=== PATIENT | female | born 1990 | race Caucasian/White ===

== ENCOUNTER 2016-11-02 12:36 | Inpatient (IN) ==
[2016-11-02] MEDS ORDERED: 0.9 % Sodium Chloride 1,000 ML IVC ONE (14:02)
[2016-11-02] MEDS ORDERED: Metoclopramide 10 MG/2 ML VIAL IVP ONE (14:02)
[2016-11-02 14:59] LABS: Bilirubin,Urine Negative (Negative); Blood,Urine Negative (Negative); Clarity,Urine Clear (Clear); Color,Urine Yellow (Yellow); Glucose,Urine (UA) Normal (Normal); Ketones,Urine Negative (Negative); Leukocyte Esterase,Urine Trace (Negative); Nitrite,Urine Negative (Negative); Protein,Urine Negative (Neg-Trace); Specific Gravity,Urine 1.021 (1.010-1.025); Urobilinogen,Urine Normal (Normal)
[2016-11-02 15:01] LABS: Bacteria,Urine None Seen per hpf (None-Few); Hyaline Casts,Urine None Seen per lpf (None-Few); RBC,Urine 0-3 per hpf (0-3); Squamous Epithelial Cell,Urine Many per lpf (None-Few)
[2016-11-02 15:02] LABS: Basophils % 0.4 %; Eosinophils # 0.1 K/mcL (0.0-0.6); Eosinophils % 1.3 %; Hematocrit 39.9 % (35.3-44.9); Hemoglobin 12.6 g/dL (11.5-15.4); Immature Granulocytes % 0.2 % (0-4); Lymphocytes # 1.3 K/mcL (0.6-4.6); Lymphocytes % 22.7 %; Mean Corpuscular HGB Conc 31.6 g/dL (31.6-35.5); Mean Corpuscular Hemoglobin 26.6 pg (28.0-33.3); Mean Corpuscular Volume 84.2 fL (83.0-100.0); Mean Platelet Volume 10.4 fL (9.4-12.4); Monocytes # 0.3 K/mcL (0.0-1.3); Monocytes % 4.7 %; Platelet Count 191 K/mcL (140-400); Red Blood Count 4.74 M/mcL (3.82-4.97); Red Cell Distribution Width 13.1 % (11.5-14.5); Segmented Neutrophils % 70.7 %
--- NOTE | 2016-11-02 15:09 | Emergency Department Note ---
Disposition Clinical Impression: Migraine Qualifiers: Migraine type: other Status migrainosus presence: without status migrainosus Intractability: not intractable Qualified Code(s): G43.809 - Other migraine, not intractable, without status migrainosus Disposition: Home, Self-Care Condition: Good Referrals: Donna Deng CNP [Primary Care Provider] - Forms: ED Satisfaction Letter General Adult HPI - General Chief complaint: ED Headache Stated complaint: Migraine x1day,spine &eye pain Time Seen by Provider: 11/02/16 14:01 Source: patient Limitations: no limitations Nursing Notes Reviewed: Yes Vital Signs Reviewed: Yes - History of Present Illness HPI Narrative: 25-year-old female who presents with concern for headache. She does not a history of migraine headaches however admits to the worst headache of her life which started 4 days ago. The onset was fairly rapid. She also had pain behind her right eye and is now transiting neck pain. She denies rash or recent head trauma. She is currently breast-feeding however is not recently . Her delivery was 11 months ago. She has no chest pain, shortness of breath, weakness Pain Scale: 2 - Related Data Allergies Allergy/AdvReac Type Severity Reaction Status Date / Time No Known Allergies Allergy Verified 11/02/16 13:05 All systems ED: reviewed and negative except as stated. Past Medical History - Past Medical History Medical history: Reports: migraine, other Psychiatric history: Reports: no psych history - Social History Smoking Status: Former smoker Smokeless Tobacco Status: No Alcohol use: Reports: none Drug use: Reports: none Physical Exam - General Limitations: no limitations General appearance: alert, in no apparent distress - Head Head exam: atraumatic - Eye Eye exam: Present: normal appearance - ENT ENT exam: normal exam, normal oropharynx - Neck Neck exam: Present: normal inspection, full ROM - Chest Chest inspection: Present: normal inspection - Respiratory Respiratory exam: Present: normal lung sounds bilaterally - Cardiovascular Cardiovascular exam: Present: regular rate, normal rhythm - Abdominal Exam Abdominal exam: Present: soft, Non-Tender - Extremities Exam Extremities exam: Present: normal inspection, full ROM - Expanded Lower Extremity Exam Hip/Pelvis exam: Present: normal inspection, full ROM Upper leg exam: Present: normal inspection, full ROM Neurovascular/Tendon exam: Present: normal capillary refill Gait: observed and normal - Back Exam Back exam: Present: normal inspection, full ROM - Neurological Exam Neurological exam: Present: alert, oriented X3, CN II-XII intact - Psychiatric Psychiatric exam: Present: normal affect, normal mood - Skin Skin exam: Present: warm, dry Course Vital Signs Temperature 98.2 F 11/02/16 13:05 Pulse Rate 87 11/02/16 13:05 Respiratory Rate 16 11/02/16 13:05 Blood Pressure 110/68 11/02/16 13:05 O2 Sat by Pulse Oximetry 96 11/02/16 13:05 Temperature 98.2 F 11/02/16 13:05 Pulse Rate 91 11/02/16 15:05 Respiratory Rate 16 11/02/16 15:05 Blood Pressure 101/68 11/02/16 15:05 O2 Sat by Pulse Oximetry 100 11/02/16 15:05 Oxygen Delivery Oxygen Delivery Room Air Medical Decision Making - Medical Records Medical records reviewed: Yes I reviewed the patient's medical records. - Lab Data Lab results reviewed: Yes I reviewed the patient's lab results. Result diagrams: 11/02/16 14:44 Lab Results 11/02/16 11/02/16 11/02/16 Range/Units 14:44 14:44 14:44 WBC 5.6 (4.3-11.1) K/mcL RBC 4.74 (3.82-4.97) M/mcL Hgb 12.6 (11.5-15.4) g/dL Hct 39.9 (35.3-44.9) % MCV 84.2 (83.0-100.0) fL MCH 26.6 L (28.0-33.3) pg MCHC 31.6 (31.6-35.5) g/dL RDW 13.1 (11.5-14.5) % Plt Count 191 (140-400) K/mcL MPV 10.4 (9.4-12.4) fL Immature Gran % 0.2 (0-4) % Seg Neutrophils % 70.7 % Lymphocytes % 22.7 % Monocytes % 4.7 % Eosinophils % 1.3 % Basophils % 0.4 % Neutrophils # 4.0 (1.6-8.9) K/mcL Lymphocytes # 1.3 (0.6-4.6) K/mcL Monocytes # 0.3 (0.0-1.3) K/mcL Eosinophils # 0.1 (0.0-0.6) K/mcL Basophils # 0.0 (0.0-0.2) K/mcL Serum , Qual Negative (Negative) Urine Color Yellow (Yellow) Urine Clarity Clear (Clear) Urine pH 6.0 (5.0-8.0) pH Units Ur Specific [place] 1.021 (1.010-1.025) Urine Protein Negative (Neg-Trace) mg/dL Urine Glucose (UA) Normal (Normal) mg/dL Urine Ketones Negative (Negative) mg/dL Urine Blood Negative (Negative) Urine Nitrite Negative (Negative) Urine Bilirubin Negative (Negative) Urine Urobilinogen Normal (Normal) mg/dL Ur Leukocyte Esterase Trace H (Negative) Urine Microscopic RBC 0-3 (0-3) per hpf Urine Microscopic WBC 5-15 H (0-3) per hpf Ur Squamous Epith Cells Many H (None-Few) per lpf Urine Bacteria None Seen (None-Few) per hpf Hyaline Casts None Seen (None-Few) per lpf Ur Culture Indicated? YES A (NO)
[2016-11-02 15:11] LABS: Alanine Aminotransferase 18 Units/L (0-55); Albumin 4.1 g/dL (3.5-5.0); Albumin/Globulin Ratio 1.2 (1.1-2.2); Alkaline Phosphatase 59 Units/L (38-126); Aspartate Amino Transferase 16 Units/L (5-34); BUN/Creatinine Ratio 17 (6-26); Bilirubin,Total 0.4 mg/dL (0.2-1.2); Blood Urea Nitrogen 13 mg/dL (7-20); Calcium 9.5 mg/dL (8.6-10.8); Carbon Dioxide 27 mEq/L (19-29); Chloride 107 mEq/L (98-109); Globulin 3.3 g/dL (2.4-3.5); Glucose 86 mg/dL (70-99); Osmolality,Calculated 291 (280-300); Sodium 141 mEq/L (136-145); Total Protein 7.4 g/dL (6.0-8.3); eGFR For African Americans > 60 (> 60); eGFR For Non-African Americans > 60 (> 60)
[2016-11-02] MEDS ORDERED: Ketorolac 30 MG/ML VIAL IVP ONE ×2 (15:52→23:37)
[2016-11-02] MEDS ORDERED: Acetaminophen/Butalbital/CaffeineTABLET PO ONE (15:52)
[2016-11-02] MEDS ORDERED: *HR* FentaNYL (PF) 100 MCG/2 ML VIAL IVP ONE (16:24)
[2016-11-02 17:53] LABS: Red Blood Cell,CSF < 0.002 M/mcL
[2016-11-02 17:57] LABS: Appearance,CSF Clear (Clear)
[2016-11-02 18:07] LABS: Glucose,CSF 57 mg/dL (40-70); Total Protein,CSF 50 mg/dL (15-45)
[2016-11-02] MEDS ORDERED: Acyclovir 500 MG in D5% in Water 100 ML IVPB ONE (18:16)
[2016-11-02] MEDS ORDERED: Vancomycin 1,000 MG in D5% in Water 250 ML IVPB ONE ×2 (18:16→23:00)
[2016-11-02] MEDS ORDERED: Naloxone 0.4 MG/ML INJ IVP PRN (20:08)
[2016-11-02] MEDS ORDERED: Acetaminophen 325 MG TABLET PO PRN (20:08)
[2016-11-02] MEDS ORDERED: *HR* HYDROcodone/Acet 5/325 mg TABLET PO PRN (20:08)
[2016-11-02] MEDS ORDERED: Ondansetron 4 MG/2 ML VIAL IVP PRN (20:08)
[2016-11-02] MEDS ORDERED: *HR* Morphine 2 MG/ML SYRINGE IVP PRN (20:08)
--- NOTE | 2016-11-02 20:14 | Internal Med History&Physical ---
<Hollis العلي - Last Filed: 11/02/16 21:19> Date of Encounter: 11/02/16 Time of Encounter: 19:30 Assessment and Plan (1) Meningitis Current visit: Yes Status: Acute - Deep frontal intermittent pulsating pressure like headache aggravated by neck flexion. - CSF analysis revealed 50 total nucleated cells with 74% lymphocyte, glucose 57 , total protein 50 suggestive of viral meningitis. - CSF culture with gram stain, HSV, Enterovirus, West Nile virus pending. - One dose of IV ceftriaxone and vancomycin had been ordered in ED. Will hold further antibiotic for now unless - Continue IV acyclovir for now. - Consider ID consult and appreciate further evaluation and recommendation. - Admit to hospital for close monitoring and IV medication treatment. Total time spent on admission: 40 minutes. (2) Pain around right eye Current visit: Yes Status: Acute - 4-day history of pain behind right eye aggravated by movement but vision change at this time. - Will obtain MRI brain and orbital with/without contrast to rule out orbital cellulitis. - Prn pain medication for pain control. (3) DVT prophylaxis Current visit: Yes Status: Acute - SQ heparin. Internal Medicine - H&P: HPI Chief complaint: Right eye pain and headache Admitted From: Emergency Dept Plans for Post Hospital Care: Home History of present illness: Ms. Humphrey is a 25 year old female with PMH of chronic headache/migraine. Patient presented with complaint of right eye pain and headache. Patient reports having pain behind the right eye for 4 days and it's aggravated by eye movement but no vision change. Patient's headache started at 4 pm yesterday and it's intermittent pulsating pressure-like deep frontal headache aggravated by neck flexion and partially alleviated by ice pack. Patient states the headache is different from the headache she had before. Patient also has some chills but denies fever, photophobia, hearing change, numbness/tingling, focal weakness, cough, dyspnea, chest pain, nausea, vomiting, diarrhea, dysuria, incontinence, skin rash/itchiness. Patient reports her daughter got sick on 10/18/16 but patient personally did not have any symptoms. Patient denies recent travel or camping. Patient [place] live [place] a farm and has exposure to animals including horse , turkey, dog and cat but denies recent bites or scratches. Patient also has some insect bites recently but she thinks it's more likely mosquito bites not tick bites. Patient denies recent trauma, injury or fall. Patient denies cold sore or genitourinary lesion. CT head in ED found no acute intracranial abnormality. Lumbar puncture was performed in ED and CSF analysis revealed 50 total nucleated cells with 74% lymphocyte, glucose 57, total protein 50 suggestive of viral meningitis. CSF culture with gram stain, HSV, enterovirus and West Nile virus pending. IV vancomycin, ceftriaxone and acyclovir were ordered. Past Med Surg Social Fam HX - Past Medical History Medical history: migraine, other Psychiatric history: no psych history - Past Surgical History Surgical History: other (Right breast fibroadenoma removal 2005, exploratory surgery for endometriosis. ) - Social History Smoking Status: Former smoker Smokeless Tobacco Status: No Alcohol use: none Drug use: none - Family History Mother History Unknown: Yes Adopted: [place]: Cecelia Humphrey Family Member Ethnicity: Non- Living Status: Still Living Hx Family Cardiac Disorders: Yes (PVC) Hx Family Respiratory Disorders: Yes (ASTHMA) Hx Family Cancer: No Hx Family GI Disorders: No Hx Family Genitourinary Disorders: No Hx Family Endocrine Disorder: No Hx Family Musculoskeletal Disorders: No Hx Family Neuromuscular Disorders: No Hx Family Neurologic Disorders: No Hx Family HEENT Disorders: No Hx Family Autoimmune Disorders: No Hx Family Reproductive Disorders: No Hx Family Psychosocial Disorders: No Hx Family Medical Disorders: No Internal Medicine - H&P: Meds Multivitamin [Multi-Day Vitamins] 1 each PO DAILY 11/02/16 [History] [place]-3 Fatty Acids/Fish Oil [Hm Fish Oil 1200 mg Softgel] 3 each PO DAILY 11/02 [History] 3 Allergy/AdvReac Type Severity Reaction Status Date / Time No Known Allergies Allergy Verified 11/02/16 13:05 All Systems PM: A 10-system review of systems was performed and is negative for pertinent findings except as documented above in the HPI. - Constitutional Constitutional: chills, no fever(s) - EENT Eyes: no change in vision Ears: no decreased hearing Nose, mouth and throat: no dysphagia, no odynophagia - Cardiovascular Cardiovascular ROS IM: no chest pain, no edema, no syncope - Respiratory Respiratory: no cough, no dyspnea, no hemoptysis - Gastrointestinal Gastrointestinal: abdominal pain, no diarrhea, no hematochezia, no melena, no nausea, no vomiting - Genitourinary Genitourinary: no difficulty urinating, no dysuria, no hematuria, no urinary incontinence - Musculoskeletal Musculoskeletal ROS IM: no arthralgias, no myalgias - Integumentary Integumentary IM: no pruritus, no rash - Neurological Neurological ROS: no frequent falls, no numbness, no tingling - Hematologic/Lymphatic Hematologic/Lymphatic: no easy bleeding, no easy bruising - Constitutional Vitals: Temp Pulse Resp BP Pulse Ox 98.2 F 101 0 0/0 97 11/02/16 13:05 11/02/16 18:33 11/02/16 19:16 11/02/16 19:16 11/02/16 18:33 General appearance: Present: cooperative, A&O X 3, no acute distress, answers questions appropriately - Head Head exam: Present: atraumatic, normocephalic - Eye Eye exam: Present: EOMI, PERRL, conjuntiva pink, sclera anicteric - ENT ENT exam: Present: mucous membranes moist, normal exam - Neck Neck exam general surgery: Present: supple, trachea midline. Absent: lymphadenopathy Additional comments: Pain on neck flexion but no nuchal rigidity - Respiratory Respiratory exam: Present: CTAB. Absent: accessory muscle use, rales, rhonchi, wheezes - Cardiovascular Cardiovascular exam: Present: RRR, +S1, +S2. Absent: diastolic murmur, gallop, rubs, systolic murmur - GI/Abdominal GI/Abdominal exam: Present: normal bowel sounds, soft, no peritoneal signs. Absent: distended, tenderness - Extremities Exam Extremities exam: Present: warm, radial pulses palpable and symmetrical. Absent : calf tenderness, cyanotic, pedal edema - Neurological Exam Neurological exam: Present: CN II-XII intact, oriented X3, no focal deficits. Absent: pronater drift, facial droop, speech deficit Additional comments: Negative Kernig's sign and Brudzinski sign. - Skin Skin exam: Present: dry, intact, warm Internal Med - H&P Results - Labs CBC & Chem 7: 11/02/16 14:44 11/02/16 14:44 <Adam Ramirez - Last Filed: 11/02/16 22:47> Date of Encounter: 11/02/16 Internal Medicine - H&P: HPI History of present illness: Ms. Hill is a 25 year old female All Systems PM: A 10-system review of systems was performed and is negative for pertinent findings except as documented above in the HPI. - Constitutional Vitals: Temp Pulse Resp BP Pulse Ox 98.2 F 101 0 0/0 97 11/02/16 13:05 11/02/16 18:33 11/02/16 19:16 11/02/16 19:16 11/02/16 18:33 Internal Med - H&P Results - Labs CBC & Chem 7: 11/02/16 14:44 11/02/16 14:44 - Impressions ITS Impressions Brain MRI 11/02/16 20:06 IMPRESSION: 1. Unremarkable MRI of the brain and orbits. No findings to account for the patient's headaches. 2. There is a right maxillary mucous retention cyst, unchanged. There is trace mucosal thickening in the anterior ethmoid air cells. D/ / 11/02/2016 21:47:05 Pierre Burch MD / isaias Interpreting Provider: Pierre Burch MD Orbit MRI 11/02/16 20:06 IMPRESSION: 1. Unremarkable MRI of the brain and orbits. No findings to account for the patient's headaches. 2. There is a right maxillary mucous retention cyst, unchanged. There is trace mucosal thickening in the anterior ethmoid air cells. D/ / 11/02/2016 21:47:05 Pierre Burch MD / isaias Interpreting Provider: Pierre Burch MD - Attending Attestation I examined this patient and my medical decision-making was reviewed with the Resident Physician, Dr. Hollis العلي. I agree with the documented findings, disposition and treatment plan as described except to the extent set forth below. I have independently obtained history and examined the patient and my findings are summarized below: Patient presented to the hospital evaluation of severe headache. On exam she is awake alert oriented in no acute distress. Heart is regular, lungs are clear. Neurologic exam is nonfocal Assessment and plan: Aseptic meningitis based on headache, neck stiffness and tenderness and CSF WBC predominantly lymphocytic. Plan: Continue empiric antibiotic and antiviral treatment. Follow-up CSF culture and Gram stain, we will obtain CSF Lyme disease antibody, viral PCR. We will obtain MRI of the brain.
[2016-11-02] MEDS: *HR* Heparin 5,000 UNIT/ML VIAL SQ SCH (22:12)
[2016-11-02] MEDS: Acyclovir 500 MG in D5% in Water 100 ML IVPB SCH (22:21)
[2016-11-03] MEDS ORDERED: Ketorolac 15 MG/ML VIAL IVP PRN (00:23)
[2016-11-03] MEDS: Acyclovir 500 MG in D5% in Water 100 ML IVPB SCH (05:11)
[2016-11-03] MEDS: *HR* Heparin 5,000 UNIT/ML VIAL SQ SCH ×2 (05:13→12:58)
[2016-11-03 06:09] LABS: Basophils % 0.4 %; Eosinophils # 0.1 K/mcL (0.0-0.6); Eosinophils % 1.2 %; Hematocrit 34.4 % (35.3-44.9); Hemoglobin 11.4 g/dL (11.5-15.4); Immature Granulocytes % 0.2 % (0-4); Lymphocytes # 1.3 K/mcL (0.6-4.6); Lymphocytes % 25.4 %; Mean Corpuscular HGB Conc 33.1 g/dL (31.6-35.5); Mean Corpuscular Hemoglobin 27.7 pg (28.0-33.3); Mean Corpuscular Volume 83.7 fL (83.0-100.0); Mean Platelet Volume 10.7 fL (9.4-12.4); Monocytes # 0.3 K/mcL (0.0-1.3); Neutrophils # 3.5 K/mcL (1.6-8.9); Platelet Count 171 K/mcL (140-400); Red Blood Count 4.11 M/mcL (3.82-4.97); Red Cell Distribution Width 13.2 % (11.5-14.5); Segmented Neutrophils % 66.8 %
[2016-11-03 06:15] LABS: BUN/Creatinine Ratio 16 (6-26); Blood Urea Nitrogen 11 mg/dL (7-20); Calcium 8.5 mg/dL (8.6-10.8); Carbon Dioxide 22 mEq/L (19-29); Chloride 112 mEq/L (98-109); Glucose 98 mg/dL (70-99); Osmolality,Calculated 291 (280-300); Potassium 3.9 mEq/L (3.5-4.5); Sodium 141 mEq/L (136-145); eGFR For African Americans > 60 (> 60); eGFR For Non-African Americans > 60 (> 60)
--- NOTE | 2016-11-03 12:16 | Infectious Disease Consult ---
Date of Encounter: 11/03/16 Time of Encounter: 12:06 Assessment and Plan (1) Meningitis Status: Acute Assessment and plan: Likely viral given the clinical picture. CT head negative. MRI brain negative. CSF analysis revealed TNC 50 with predominantly lymphocytes. HSV PCR, Enterovirus, WNV pending. Clinically improved overnight. Low index of suspicion for HSV meningitis. Discontinue acyclovir. Continue supportive care. Pain management per the primary team. No further recommendations from the ID team. Will sign off. Please re-consult if needed. (2) Pain around right eye Status: Acute Assessment and plan: MRI negative. Continue supportive care. Pain management per the primary team. Infectious Disease HPI - Data of Consult Patient: new to practice Consult date: 11/03/16 Requesting Physician: Rikki Reyna MD Primary Care Provider: Donna Deng CNP - Consult Narrative Reason for consult: Meningitis History of present illness: Ms. Humphrey is a 25 year old female with a past medical history of migraine headaches. The patient was admitted to the hospital November 02 for meningitis. We are consulted November 03 for further evaluation and treatment recommendations regarding meningitis. The patient is a 25-year-old female with past medical history as stated above. The patient reported a four-day history of right eye pain that progressed into a headache that she reported was the worst headache of her life. She reported some associated light sensitivity, but denies any photophobia, nausea, vomiting , diarrhea, or blurred vision. She states the headache was mainly in the front of her head, but she did have pain diffusely. She reported some neck pain that started the day prior to admission. She does report port that she had one episode of abdominal cramping and diarrhea on Monday. She denies any recent URI symptoms. Upon arrival, the patient was afebrile and she was hemodynamically stable. Her laboratory studies revealed a normal white blood cell count. Urinalysis appears contaminated and the urine culture is still pending. CT of the head was negative. She did have a brain MRI that was negative. She underwent a lumbar puncture that showed a total neutrophil count of 50 with 74% lymphocytes and 22% segmented neutrophils. The protein was mildly elevated at 50 and glucose was normal at 7. The CSF culture is preliminarily negative. Enterovirus PCR, HSV PCR, and West Nile virus serologies on the CSF are still pending. Today, the patient remains afebrile and hemodynamically stable. Her white blood cell count remains normal. In the emergency department, she received 1 dose of IV vancomycin and IV Rocephin. She was started on acyclovir by the hospitalist team. We've asked to evaluate and make further recommendations. During my exam today, the patient states overall she feels better. She states her headache and neck pain have resolved. She states she's does still have some mild pain behind her right eye, but this is improved as well. She denies any fevers or rigors, but does report some subjective chills prior to admission. She denies any neck pain or stiffness at this time. She did report some worsening of the headache with flexion of her chin to her chest prior to admission. She denies any chest pain or shortness of breath or cough. She denies nausea, vomiting, diarrhea, or constipation. She denies any abdominal pain or urinary complaints. She denies pain anywhere joints or extremities or back. She denies any oral thrush or skin lesions. She states that overall she feels much better and she is anxious to go home. 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 She states she's had multiple bug bites that appear to be mosquito bites, but denies any tick bite. The patient lives at home with HER-2 children and significant other. She denies any alcohol, tobacco, or illicit drug use. She does not work outside the home. She is an online student. She denies any recent travel outside the [facility]. CC: Rikki Reyna MD Past Med Surg Social Fam HX - Past Medical History Attestation: Yes The following information was validated with the patient. Source: patient, old records reviewed, nursing notes reviewed Medical history: migraine, other Psychiatric history: no psych history - Past Surgical History Surgical History: other (Right breast fibroadenoma removal 2006, exploratory surgery for endometriosis. ) - Social History Smoking Status: Former smoker Smokeless Tobacco Status: No Alcohol use: none Drug use: none Occupational status: student Current living situation: Home - Independent Activity Level: Independent ambulation Recent Out of Country Travel Within the Last 8 Weeks: No Exposure or Possible Exposure to Illness During Travel: No - Family History Mother History Unknown: Yes Adopted: [place]: Cecelia [place] Family Member Ethnicity: Non- Living Status: Still Living Hx Family Cardiac Disorders: Yes (PVC) Hx Family Respiratory Disorders: Yes (ASTHMA) Hx Family Cancer: No Hx Family GI Disorders: No Hx Family Genitourinary Disorders: No Hx Family Endocrine Disorder: No Hx Family Musculoskeletal Disorders: No Hx Family Neuromuscular Disorders: No Hx Family Neurologic Disorders: No Hx Family HEENT Disorders: No Hx Family Autoimmune Disorders: No Hx Family Reproductive Disorders: No Hx Family Psychosocial Disorders: No Hx Family Medical Disorders: No Infectious Disease-CN:Meds Multivitamin [Multi-Day Vitamins] 1 each PO DAILY 11/02/16 [History] [place]-3 Fatty Acids/Fish Oil [Hm Fish Oil 1200 mg Softgel] 3 each PO DAILY 11/02 [History] 3 Allergy/AdvReac Type Severity Reaction Status Date / Time No Known Allergies Allergy Verified 11/02/16 13:05 All systems: reviewed and no additional remarkable complaints except as stated Exam - Constitutional Vitals: Temp Pulse Resp BP Pulse Ox 98.4 F 74 18 106/70 98 11/03/16 10:58 11/03/16 10:58 11/03/16 10:58 11/03/16 10:58 11/03/16 10:58 General appearance: average body habitus, cooperative, no acute distress - Head Head exam: Present: atraumatic, normal inspection, normocephalic - Eye Eye exam: Present: EOMI, normal appearance, PERRL Pupils: Present: normal accommodation - ENT ENT exam: Present: mucous membranes moist - Neck Neck exam: Present: normal inspection. Absent: lymphadenopathy, meningismus - Respiratory Respiratory exam: Present: CTAB. Absent: rales, respiratory distress, rhonchi, wheezes - Cardiovascular Cardiovascular exam: Present: RRR, +S1, +S2 - GI/Abdominal GI/Abdominal exam: Present: normal bowel sounds, soft. Absent: distended, tenderness - Extremities Exam Extremities exam: Present: normal inspection. Absent: joint swelling, pedal edema, tenderness - Back Exam Back exam: Present: normal inspection Additional comments: LP site noted to the lumbar spine with Band-Aid intact. No drainage or bleeding noted. No surrounding erythema or tenderness noted. - Neurological Exam Neurological exam: Present: alert, oriented X3, no focal deficits - Psychiatric Psychiatric exam: Present: normal affect, normal mood - Skin Skin exam: Present: dry, intact, normal color, warm Infectious Disease CN: Results - Labs CBC & Chem 7: 11/03/16 05:00 11/03/16 05:00 Cultures: Cultures 11/02/16 17:22 CSF Culture - Preliminary Cerebral Spinal Fluid Consult Discharge Plan - Plan Referrals: Donna Deng CNP [Primary Care Provider] -
[2016-11-03 15:20] VITALS: BP 108/71
--- NOTE | 2016-11-03 16:05 | Discharge Summary ---
Date of Encounter: 11/03/16 Time of Encounter: 16:03 - Discharge Diagnosis (1) Meningitis due to nonbacterial organism Priority: Primary Status: Acute (2) Migraine Priority: Primary Status: Acute Qualifiers: Migraine type: other Status migrainosus presence: without status migrainosus Intractability: not intractable Qualified Code(s): G43.809 - Other migraine, not intractable, without status migrainosus - Discharge Medications Prescriptions: Naproxen [Naprosyn] 500 mg PO BID PRN #15 tablet PRN Reason: headache Home Medications: Multivitamin [Multi-Day Vitamins] 1 each PO DAILY 11/02/16 [History] [place]-3 Fatty Acids/Fish Oil [Hm Fish Oil 1200 mg Softgel] 3 each PO DAILY 11/02 [History] Naproxen [Naprosyn] 500 mg PO BID PRN #15 tablet 11/03/16 [Rx] Allergies/Adverse Reactions: 3 Allergy/AdvReac Type Severity Reaction Status Date / Time No Known Allergies Allergy Verified 11/02/16 13:05 Date of admission: 11/02/16 23:02 Primary care physician: Donna Deng CNP Consults: 11/02/16 23:38 Consult to Infectious Diseases [CONS] Routine Consulting Provider: Infectious Disease Unique Reason for Consult: Meningitis likely viral. CSF culture with gram stain, HSV , enterovirus and West Nile virus pending. Appreicate further recommendation. Call Completed: No - Patient Status Disposition: Home, Self-Care Condition: Good Overall status at discharge: patient is back to baseline - Discharge Instructions Follow Up With: Donna Deng CNP [Primary Care Provider] - Additional Instructions: Need to f/u with PCP in 5-7 days Need to f/u with your regular neurologist in 1 week Please follow up with PCP to discuss your further CSF test results Also please come back to ER if you ever get worsening headache, confusion, visual changes, Nausea and vomiting. - Diet and Activity Activity: increase activity as tolerated Diet: advance to your usual diet Hospital course: Ms. Humphrey is a 25 year old female with PMH of chronic headache/migraine. Patient presented with complaint of right eye pain and headache. Patient reports having pain behind the right eye for 4 days and it's aggravated by eye movement but no vision change. Patient's headache started at 4 pm yesterday and it's intermittent pulsating pressure-like deep frontal headache aggravated by neck flexion and partially alleviated by ice pack. Patient states the headache is different from the headache she had before. Patient also has some chills but denies fever, photophobia, hearing change, numbness/tingling, focal weakness, cough, dyspnea, chest pain, nausea, vomiting, diarrhea, dysuria, incontinence, skin rash/itchiness. Patient reports her daughter got sick on 10/18/16 but patient personally did not have any symptoms. Patient denies recent travel or camping. [place] and has exposure to animals including horse , turkey, dog and cat but denies recent bites or scratches. Patient also has some insect bites recently but she thinks it's more likely mosquito bites not tick bites. Patient denies recent trauma, injury or fall. Patient denies cold sore or genitourinary lesion. CT head in ED found no acute intra cranial abnormality. Lumbar puncture was performed in ED and CSF analysis revealed 50 total nucleated cells with 74% lymphocyte, glucose 57, total protein 50 suggestive of viral meningitis. CSF culture with gram stain, HSV, enterovirus and West Nile virus pending. Pt was admitted in the hospital and empirical broad spectrum abx IV vancomycin, ceftriaxone and acyclovir were ordered. Her CSF gram staining was negative and Cx so far came back as no growth. She denied any herpes lesions / denied h/o STD 's, Herpes infections in the past. She did mention she has chronic migraine history for which she has been following with Neurologst as an out pt, who mentioned at some poing working her up for MS. Her Brain MRI did not show MS lesions. However since she had LP done, I did sent for Oligoclonal bands and IgG assessment. Recommend to f/u with PCP and Neurologist regarding this test results. Pt was evaluated by ID , who does not think HSV meningitis. They discontinued all the abx and antiviral medications. Recommend conservative care. Her West [place] virus results are still pending. Since she does not have any more headache/ eye pain , will d/c her home in stable condition. However I recommend her to come back to ER if she ever gets worsening headache, confusion, visual changes, Nausea and vomiting. - Time Spent with Patient Total time spent providing and/or coordinating discharge services: - Constitutional Vitals: Temp Pulse Resp BP Pulse Ox 98.7 F 82 18 108/71 99 11/03/16 15:16 11/03/16 15:16 11/03/16 15:16 11/03/16 15:16 11/03/16 15:16 General appearance: Present: cooperative, A&O X 3, no acute distress, answers questions appropriately - Head Head exam: Present: atraumatic, normal inspection - Respiratory Respiratory exam: Present: decreased breath sounds, wheezes. Absent: respiratory distress, rhonchi - Cardiovascular Cardiovascular exam: Present: RRR, +S1, +S2. Absent: systolic murmur - GI/Abdominal GI/Abdominal exam: Present: soft. Absent: rebound, rigid, tenderness - Extremities Exam Extremities exam: Absent: calf tenderness, pedal edema, tenderness - Psychiatric Psychiatric exam: Present: normal affect, normal mood
[2016-11-05 12:04] LABS: HSV 1 Glycoprotein G IgG CSF 0.04 IV (<=0.89)
[2016-11-06 05:02] LABS: West Nile Virus PCR Source CSF
[2016-11-06 10:05] LABS: Albumin Index 8.3 ratio (0.0-9.0); Albumin by Nephelometry 3720 mg/dL (3500-5200)
[2016-11-07 07:31] LABS: Immunoglobulin G Subclass 1 485 mg/dL (240-1118); Immunoglobulin G Subclass 2 305 mg/dL (124-549); Immunoglobulin G Subclass 3 41 mg/dL (21-134); Immunoglobulin G Subclass 4 62 mg/dL (1-123)
[2016-11-07 07:41] LABS: IgG Serum 929 mg/dL (768-1632)
[2016-11-07 07:42] LABS: West Nile Virus RNA Result NOT DETECTED
== END 2016-11-03 18:00 | disposition home or self-care (01) | DRG 50 ==
LOC: 3NENU 12:36 → EMEROO 12:36 → 3NENU 19:20
PROVIDERS: ADMIT Nurse Practitioner Family; ATTEND Internal Medicine